=== PATIENT | female | born 2000 ===

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

== ENCOUNTER 2018-07-15 14:01 | Emergency (ER) | payer BC ==
[2018-07-15 14:18] VITALS: BP 105/62
--- NOTE | 2018-07-15 14:27 | UC ---
UC General HPI - HPI Summary HPI Summary: yesterday c/o diffuse muscle aches and fever both of which are much improved but now has fatigue, sob and a dry cough. she admits to wheezing as well. no associated cp, asthma, leg pain or calf swelling. - History of Current Complaint Chief Complaint: UCGeneralIllness Stated Complaint: COUGH SHORTNESS OF BREATH FATIGUE Time Seen by Provider: 07/15/18 14:10 Hx Obtained From: Patient Hx Last Menstrual Period: "last week" Onset/Duration: Gradual Onset Pain Intensity: 0 Associated Signs & Symptoms: Positive: Cough, Fever, SOB, Wheezing - Allergy/Home Medications Allergies/Adverse Reactions: Allergies Allergy/AdvReac Type Severity Reaction Status Date / Time No Known Allergies Allergy Verified 09/03/17 20:43 Home Medications: Home Medications Acetaminophen [Tylenol Extra Strength] 500 mg PO ONCE 07/15/18 [History Confirmed 07/15/18] PMH/Surg Hx/FS Hx/Imm Hx Previously Healthy: Yes - Surgical History Surgical History: None - Family History Known Family History: Positive: Unknown Negative: Blood Disorder - Social History Occupation: Student Alcohol Use: Occasionally Substance Use Type: None Smoking Status (MU): Never Smoked Tobacco Have You Smoked in the Last Year: No - Immunization History Most Recent Influenza Vaccination: Not the 2016/2017 Season Vaccination Up to Date: Yes Review of Systems Constitutional: Fever, Fatigue Respiratory: Shortness Of Breath, Cough Musculoskeletal: Myalgia Is Patient Immunocompromised?: No All Other Systems Reviewed And Are Negative: Yes Physical Exam Triage Information Reviewed: Yes Appearance: Well-Appearing Vital Signs: Initial Vital Signs Temp 98.8 F 07/15/18 14:14 Pulse 71 07/15/18 14:14 Resp 19 07/15/18 14:14 BP 105/62 07/15/18 14:14 Pulse Ox 99 07/15/18 14:14 Vital Signs Reviewed: Yes Eyes: Positive: Conjunctiva Clear ENT: Positive: Pharynx normal, TMs normal. Negative: Nasal congestion, Nasal drainage Neck: Positive: Supple, Nontender, No Lymphadenopathy Respiratory: Positive: No respiratory distress, Decreased breath sounds - greates in RLL Cardiovascular: Positive: RRR, No Murmur Abdomen Description: Positive: Nontender, No Organomegaly, Soft Bowel Sounds: Positive: Present Musculoskeletal: Positive: ROM Intact, No Edema - BLE's. no calf tenderness or cords Neurological: Positive: Alert Psychological: Positive: Age Appropriate Behavior Skin Exam: Normal Diagnostics - Radiology No standard instances Radiology Interpretation Completed By: Radiologist - IMPRESSION: Findings consistent with right lower lobe pneumonia. Re-Evaluation - Re-Evaluation First Eval Change: Improved - BETTER AERATION, PT NOTES BREATHING IS EASIER Course/Dx - Course Course Of Treatment: RLL pneumonia on cxr. non toxic and not hypoxic thus appropriate for out pt tx. - Differential Dx - Multi-Symptom Provider Diagnoses: RLL pneumonia Discharge - Sign-Out/Discharge Documenting (check all that apply): Patient Departure All imaging exams completed and their final reports reviewed: Yes - Discharge Plan Condition: Stable Disposition: HOME Prescriptions: Albuterol HFA INHALER* [Ventolin HFA Inhaler*] 2 puff INH Q6H #1 mdi DOXYcycline CAP(*) [DOXYcycline 100MG CAP(*)] 100 mg PO BID 10 Days #20 cap Patient Education Materials: Community Acquired Pneumonia (ED) Forms: *School Release Referrals: [facility] [Outside] - 6 Days Additional Instructions: GO TO THE ER IMMEDIATELY FOR ANY WORSENING - Billing Disposition and Condition Condition: STABLE Disposition: Home
[2018-07-15] MEDS ORDERED: Albuterol 2.5 MG/3 ML NEB.SOL* (0.083%) INH ONE (14:29)
--- NOTE | 2018-07-15 14:46 | RAD ---
Indication: Cough, shortness of breath. 2 views of the chest including dual energy PA views demonstrate airspace disease in the right lung base consistent with right basilar pneumonia. Left lung field is clear. IMPRESSION: Findings consistent with right lower lobe pneumonia.
== END 2018-07-15 15:08 | disposition home or self-care (01) ==
LOC: UCCORT 14:01
DX: J18.9 Pneumonia, unspecified organism (principal)
CPT/HCPCS: 71046; 99212; G0463

== ENCOUNTER 2018-11-08 07:58 | Emergency (ER) | payer BC ==
[2018-11-08 08:09] VITALS: BP 117/65
--- NOTE | 2018-11-08 08:15 | UC ---
Throat Pain/Nasal Jesus HPI - HPI Summary HPI Summary: Pt presents with c/o sinus congestion, pressure pain x 2 weeks. - History of Current Complaint Chief Complaint: UCRespiratory Stated Complaint: SINUS COMPLAINT Time Seen by Provider: 11/08/18 08:03 Hx Obtained From: Patient Hx Last Menstrual Period: 10/22/18 ?: No Onset/Duration: Gradual Onset, Lasting Weeks Severity: Moderate Pain Intensity: 6 Cough: Nonproductive Associated Signs & Symptoms: Positive: Sinus Discomfort - Epiglottits Risk Factors Epiglottis Risk Factors: Negative - Allergies/Home Medications Allergies/Adverse Reactions: Allergies Allergy/AdvReac Type Severity Reaction Status Date / Time No Known Allergies Allergy Verified 11/08/18 08:09 PMH/Surg Hx/FS Hx/Imm Hx Previously Healthy: Yes - Surgical History Surgical History: None - Family History Known Family History: Positive: Unknown, Non-Contributory Negative: Blood Disorder - Social History Occupation: Student Lives: Dormitory/Roommates Alcohol Use: Occasionally Substance Use Type: None Smoking Status (MU): Never Smoked Tobacco Have You Smoked in the Last Year: No - Immunization History Most Recent Influenza Vaccination: Not the 2016/2017 Season Vaccination Up to Date: Yes Review of Systems All Other Systems Reviewed And Are Negative: Yes Constitutional: Positive: Negative Skin: Positive: Negative Eyes: Positive: Negative ENT: Positive: Sinus Congestion, Sinus Pain/Tenderness Respiratory: Positive: Cough Cardiovascular: Positive: Negative Gastrointestinal: Positive: Negative Genitourinary: Positive: Negative Motor: Positive: Negative Neurovascular: Positive: Negative Musculoskeletal: Positive: Negative Neurological: Positive: Negative Psychological: Positive: Negative Is Patient Immunocompromised?: No Physical Exam Triage Information Reviewed: Yes Appearance: Ill-Appearing Vital Signs: Initial Vital Signs Temp 98.1 F 11/08/18 08:05 Pulse 68 11/08/18 08:05 Resp 14 11/08/18 08:05 BP 117/65 11/08/18 08:05 Pulse Ox 99 11/08/18 08:05 Vital Signs Reviewed: Yes Eye Exam: Normal ENT: Positive: Nasal congestion, Sinus tenderness Dental Exam: Normal Neck exam: Normal Respiratory Exam: Normal Cardiovascular Exam: Normal Musculoskeletal Exam: Normal Neurological Exam: Normal Psychological Exam: Normal Skin Exam: Normal Throat Pain/Nasal Course/Dx - Differential Dx/Diagnosis Differential Diagnosis/HQI/PQRI: Sinusitis, URI Provider Diagnosis: Sinusitis Discharge - Sign-Out/Discharge Documenting (check all that apply): Patient Departure All imaging exams completed and their final reports reviewed: No Studies - Discharge Plan Condition: Stable Disposition: HOME Prescriptions: Amoxicillin PO (*) [Amoxicillin 875 MG (*)] 875 mg PO Q12H #20 tab Guaifenesin/Pseudoephedrne HCl [Mucinex D ER 600-60 mg Tablet] 1 each PO Q12H # 14 tab.er.12h Patient Education Materials: Sinusitis (ED) Referrals: [facility] [Outside] No Primary Care Phys,NOPCP [Primary Care Provider] - - Billing Disposition and Condition Condition: STABLE Disposition: Home
== END 2018-11-08 08:23 | disposition home or self-care (01) ==
LOC: UCCORT 07:58
DX: J32.9 Chronic sinusitis, unspecified (principal)
CPT/HCPCS: 99212; G0463

== ENCOUNTER 2019-12-02 08:02 | Emergency (ER) | payer BC ==
[2019-12-02 08:29] VITALS: BP 112/73
--- NOTE | 2019-12-02 09:23 | UC ---
Skin Complaint HPI - HPI Summary HPI Summary: 19 yo with celiac disease, with outbreak of rash x 3 days ago which is her typical reaction to gluten exposure. In the past has needed both topical and oral steroid for relief of symptoms. She has no gi symptoms. - History of Current Complaint Chief Complaint: UCRash Time Seen by Provider: 12/02/19 09:17 Stated Complaint: SKIN - ALLERGIC REACTION Hx Obtained From: Patient Hx Last Menstrual Period: 11/11/19 Onset/Duration: Sudden Onset Skin Exposure Onset/Duration: Days Ago Timing: Constant Onset Severity: Mild Current Severity: Mild Pain Intensity: 0 Location: Discrete - right side of neck and upper thorax Aggravating Factor(s): Touch Alleviating Factor(s): Antihistamines Associated Signs & Symptoms: Positive: Negative - Allergy/Home Medications Allergies/Adverse Reactions: Allergies Allergy/AdvReac Type Severity Reaction Status Date / Time gluten Allergy Intermediate Rash Verified 12/02/19 08:21 Home Medications: Home Medications Norethindrone-E.estradiol-Iron [Blisovi Fe 1.5-30 Tablet] 1 tab PO BEDTIME 11/14 [History Confirmed 12/02/19] Albuterol HFA INHALER* [Ventolin HFA Inhaler*] 2 puff INH Q6H PRN 08/07/18 [ History Confirmed 12/02/19] Sertraline* [Zoloft*] 150 mg PO DAILY PRN 12/02/19 [History Confirmed 12/02/19] Triamcinolone 0.5% CREAM(NF) [Triamcinolone 0.5% CREAM*] 1 applic TOPICAL TID PRN #60 gm 12/02/19 [Rx] diPHENhydraMINE 2% CREAM(NF) [Benadryl 2% CREAM (NF)] 1 applic TOPICAL TID PRN 12/02/19 [History Confirmed 12/02/19] diPHENhydraMINE PO* [Benadryl PO 25 MG TAB*] 25 mg PO Q6H PRN 12/02/19 [History Confirmed 12/02/19] predniSONE 20 mg TAB [Deltasone 20 MG TAB*] 20 mg PO DAILY #10 tab 12/02/19 [Rx] PMH/Surg Hx/FS Hx/Imm Hx Previously Healthy: Yes Respiratory History: Asthma GI/ History: Other - celiac disease Psychological History: Anxiety, Depression - Surgical History Surgical History: None - Family History Known Family History: Positive: Other - father has celiac disease Negative: Blood Disorder - Social History Occupation: Student Lives: With Family Alcohol Use: Occasionally Substance Use Type: None Smoking Status (MU): Never Smoked Tobacco Have You Smoked in the Last Year: No - Immunization History Most Recent Influenza Vaccination: Not the Season Vaccination Up to Date: Yes Review of Systems All Other Systems Reviewed And Are Negative: Yes Constitutional: Positive: Negative Skin: Positive: Rash Eyes: Positive: Negative ENT: Positive: Negative Respiratory: Positive: Negative Cardiovascular: Positive: Negative Gastrointestinal: Positive: Negative Genitourinary: Positive: Negative Motor: Positive: Negative Neurovascular: Positive: Negative Musculoskeletal: Positive: Negative Neurological/Mental Status: Positive: Negative Psychological: Positive: Negative Is Patient Immunocompromised?: No Physical Exam Triage Information Reviewed: Yes Appearance: Well-Appearing, No Pain Distress Vital Signs: Initial Vital Signs Temp 97.6 F 12/02/19 08:24 Pulse 66 12/02/19 08:24 Resp 16 12/02/19 08:24 BP 112/73 12/02/19 08:24 Pulse Ox 100 12/02/19 08:24 Eye Exam: Normal Eyes: Positive: Conjunctiva Clear ENT: Positive: Pharynx normal Neck: Positive: Supple, Nontender, No Lymphadenopathy Respiratory: Positive: Lungs clear, Normal breath sounds Cardiovascular: Positive: RRR, No Murmur Musculoskeletal Exam: Normal Neurological Exam: Normal Psychological Exam: Normal Skin: Positive: Rashes - diffuse erythematous rash right side of neck from jaw to midline, ill defined margins, approximately 15 cm. Diffuse erythema upper pectoral area towards axilla Course/Dx - Course Course Of Treatment: topical steroid, oral steroid if that is not effective. - Differential Diagnoses - Skin Complaint Differential Diagnoses: Angioedema, Cellulitis, Eczema, Urticaria - Diagnoses Provider Diagnosis: Eczema Discharge ED - Sign-Out/Discharge Documenting (check all that apply): Patient Departure All imaging exams completed and their final reports reviewed: No Studies - Discharge Plan Condition: Stable Disposition: HOME Prescriptions: predniSONE 20 mg TAB [Deltasone 20 MG TAB*] 20 mg PO DAILY #10 tab Triamcinolone 0.5% CREAM(NF) [Triamcinolone 0.5% CREAM*] 1 applic TOPICAL TID PRN #60 gm PRN Reason: Rash Patient Education Materials: Eczema (ED) Referrals: No Primary Care Phys,NOPCP [Primary Care Provider] - Additional Instructions: you have an eczematous rash as a result of gluten exposure. Apply a light application of trmacinolone 3 times daily. Restrict use to 10 days to avoid thinning of the skin, and do not apply to the face. If the rash does not show suitable improvement, begin prednisone in 1 to 2 days. Continue benadryl. Wear sun protective gear and sun screen while in [place] because the sun exposure can cause hyperpigmetation in the area of the rash. - Billing Disposition and Condition Condition: STABLE Disposition: Home
== END 2019-12-02 09:40 | disposition home or self-care (01) ==
LOC: UCCORT 08:02
DX: L30.9 Dermatitis, unspecified (principal); K90.0 Celiac disease; J45.909 Unspecified asthma, uncomplicated; F41.9 Anxiety disorder, unspecified; F32.9 Major depressive disorder, single episode, unspecified; Z91.02 Food additives allergy status; Z79.899 Other long term (current) drug therapy
CPT/HCPCS: 99212; G0463